=== PATIENT | male | born 1960 | race Two or more races ===

== ENCOUNTER 2021-04-07 15:56 | Emergency (ER) | payer OTHER ==
[~2021-04-07] VITALS: Ht 177.8 cm; Wt 93.9 kg
[2021-04-07] MEDS ORDERED: COZAAR50 MG (16:13)
[2021-04-07] MEDS ORDERED: GLUMETZA500 MG (16:13)
[2021-04-07] MEDS ORDERED: TAMS0.4C (16:19)
[2021-04-07] MEDS ORDERED: TAMS0.4C PO (21:15)
== END 2021-04-07 21:41 | disposition home or self-care (01) ==
LOC: ER 15:56
DX: N39.0 Urinary tract infection, site not specified (principal); E11.9 Type 2 diabetes mellitus without complications; I10 Essential (primary) hypertension